=== PATIENT | female | born 1955 | race Caucasian/White ===

== ENCOUNTER 2018-06-30 00:24 | Outpatient (CLI) | payer BC, SELFPAY ==
--- NOTE | 2018-06-30 16:03 | DI.MAMMO_ITS ---
SYMPTOM/DIAGNOSIS: SCREENING, Z12.31 MAMMOGRAMS: Mammograms were interpreted according to the usual protocol including computer analysis with CAD system, tomosynthesis and C view imaging. Comparison with prior examinations. Breast density C. No masses or microcalcifications are seen. There is nothing to suggest malignancy. IMPRESSION: Negative mammogram. Routine screening is recommended. Category I. MQSA ASSESSMENT OF FINDINGS: Negative. Category 1. Patient will receive a letter notifying them of these results. Bi-RADS category C. The breasts are heterogeneously dense, which may obscure small masses.
== END 2018-06-30 00:44 ==
PROVIDERS: PCP Family Medicine; Visit Provider Family Medicine
DX: Z12.31 Encounter for screening mammogram for malignant neoplasm of breast (principal)
CPT/HCPCS: 77063; 77067

== ENCOUNTER 2018-07-25 02:01 | Outpatient (CLI) | payer BC, SELFPAY ==
[2018-07-25 13:27] LABS: ALT 39 U/L (12-78); AST 32 U/L (15-37); Albumin 3.8 g/dL (3.4-5.0); Alkaline Phosphatase 50 U/L (46-116); Anion Gap 8.4 mmol/L (3-11); BUN 13 mg/dL (7-18); Bilirubin, Total 0.3 mg/dL (0.2-1.0); CO2 27.6 mmol/L (21.0-32.0); CREATININE 0.67 mg/dL (0.55-1.02); Calcium 9.1 mg/dL (8.5-10.1); Chloride 103 mmol/L (98-107); Cholesterol 230 mg/dL (50-200); Glucose 104 mg/dL (70-100); HDL Cholesterol 52 mg/dL (40-60); LDL CHOLESTEROL 147 mg/dL (<100); Potassium 4.9 mmol/L (3.5-5.1); Sodium 139 mmol/L (136-145); TSH (W/Ref FT4) 2.54 uIU/mL (0.358-3.74); Total Protein 7.1 g/dL (6.4-8.2); Triglyceride 173 mg/dL (30-150)
[2018-07-25 18:50] LABS: Vitamin B12 406 pg/mL (193-986)
== END 2018-07-25 02:21 ==
PROVIDERS: PCP Family Medicine; Visit Provider Family Medicine
DX: Z00.00 Encounter for general adult medical examination without abnormal findings (principal)
CPT/HCPCS: 36415; 80053; 80061; 83721; 82607; 84443

== ENCOUNTER 2018-09-11 07:45 | Day surgery (SDC) | payer BC, SELFPAY ==
--- NOTE | 2018-09-11 06:39 | W.COLOREPORT ---
Date of service: 09/11/18 Time of Service: 09:16 Colonoscopy Report Date of procedure: 09/11/18 Pre-op diagnosis general: Colon Cancer Screening Post-op diagnosis procedure note: other (Unable to complete secondary to colon being tortuous) Procedure: Colonoscopy Surgeon: Mohini Sewell Anesthesia proc note operative: MAC (Calvin Coker, ELLIE /ASA 2) Pathology: none sent Complications: None Disposition: same day Indications: Ms. Ibarra is a 63-year-old female who was seen in the office for a colonoscopy. Her last colonoscopy was in 2006 and was normal. Risks, benefits, complications were reviewed with her and she wished to proceed. No guarantees were given or implied. Prep: Miralax/Dulcolax Procedure Start Time: :16 Procedure End Time: : Findings: Extremly lax and tortuous colon. Attempted for 40 minutes to get the scope to advance to the cecum. Got as far as transverse colon. Position changes done and abdominal pressure applied without being able to advance the scope past this point. Prep was also suboptimal with a lot of liquid stool in her colon. Procedure Description: After informed consent was obtained the patient was taken to the procedure room and placed in a left decubitous position. Monitors were applied and a time out was done. The patients name, date of , procedure, allergies to medications and metal in their body was reviewed. The patient was then sedated. Once sedated and comfortable a rectal exam was done. External exam was normal. Internal exam revealed a normal sphincter tone and no palpable masses. The scope was then introduced and retro-flexed. No internal hemorrhoids were identified. The scope was then advanced to the mid-transverse colon with a lot of difficulty due to the colon being tortuous and quit lax. 40 minutes were spend trying to get the scope to advance past the mid-transverse colon without success. Patient had abdominal pressure applied and her position was switched to supine. None of these things helped to advance the scope. No polyps were noted from the transverse colon down. The scope was removed and the patient was woken up and taken back to Same day surgery in stable condition. The patient tolerated the procedure well and there were no immediate complications. Follow up: We can try again here or have patient follow up at [facility] or [place] for a colonoscopy to see if they have better luck. I will discuss this with patient and see which is her preference.
--- NOTE | 2018-09-11 06:41 | PDOC.DSDIS_ITS ---
Discharge Plan Disposition Patient Disposition: HOME Condition: Good Discharge Details Reason For Visit: SCREENING Attending Provider: Mohini Sewell Primary Care Provider: Terra Pike Home Meds and New Rx's Prescriptions: Continued ibuprofen 200 MG tablet 600 mg PO PRN RF: 0 Discontinued bisacodyl [Dulcolax (bisacodyl)] 5 mg tablet,delayed release (DR/EC) 5 mg PO ONCE Qty: 4 RF: 0 polyethylene glycol 3350 17 gram/dose powder 255 g PO ONCE Qty: 255 RF: 0 Discharge Instructions Instructions: Colonoscopy (DC) Additional Instructions: Findings: Tortuous and relaxed colon making it impossible to move the scope to the cecum. Follow up: Discuss second attempt here vs referral to [facility] or [facility] Please call if you develop: fevers >101.5 Nausea or Vomiting Abdominal pain that is not transient DAY SURGERY UNIT POST COLONOSCOPY INSTRUCTIONS 1. Because there will be medication in your system for the next 24 hours, you may feel a little sleepy. Your coordination will be affected. Therefore: a. Do not drive or operate dangerous equipment for 24 hours. b. Do not drink alcohol beverages for 24 hours (not even beer). c. Plan to go home and rest for the day. 2. Generally there are no restrictions on your activity after a day or so has gone by, but you may feel a bit fatigued for a few days. 3 After you arrive home you may have a light meal and return to a normal diet as you can tolerate it without feeling sick to your stomach. 4. After surgery, you may feel pain or discomfort. This should be only transient, but if it persists please contact your doctor. 5. If there are any questions regarding the findings of your procedure, please feel free to contact your doctor. 6. If you are unable to contact your doctor with a problem, contact the hospital at [phone]. 7. Continue all your regular medications unless directed otherwise. I understand the above instructions and have no questions. Signature of Patient or Responsible Adult Escort Date/Time Name of Responsible Adult Escort Signature of Nurse Date/Time Activity:: Activity as Tolerated Diet:: As Tolerated Discharge Orders Discharge Orders: Discharge Order (Routine); Ordered 09/11/18 Ordered By: Mohini Sewell DS: Diagnosis Discharge Diagnosis (1) Tortuous colon: Status: Acute (2) S/P colonoscopy: Status: Acute
[2018-09-11 07:59] VITALS: BP 113/76; PULSE 73; RESP 16; TEMP 36.7; O2SAT 96
[2018-09-11] MEDS: Lactated Ringers 1,000 ML 80 ML IV (08:14)
[2018-09-11 11:19] VITALS: BP 112/51; BP 112/75; PULSE 71; PULSE 72; RESP 16; TEMP 37; O2SAT 94; O2SAT 96
== END 2018-09-11 11:35 | disposition home or self-care (01) ==
LOC: SUR 07:45
PROVIDERS: PCP Family Medicine; Visit Provider Surgery
PROC: 0DJD8ZZ Inspection of Lower Intestinal Tract, Via Natural or Artificial Opening Endoscopic (ICD-10-PCS; CPT 45378; principal; 2018-09-11 09:15)
DX: Z12.11 Encounter for screening for malignant neoplasm of colon (principal); K63.89 Other specified diseases of intestine
CPT/HCPCS: 45378

== ENCOUNTER 2020-06-27 08:19 | Outpatient (CLI) | payer BC, SELFPAY ==
[2020-07-01 18:08] LABS: Patient Race White; SARS-CoV-2 RNA Undetected (Undetected); SARS-CoV-2 Specimen Source Nasal
== END 2020-06-27 08:39 ==
PROVIDERS: PCP Family Medicine; Visit Provider Family Medicine
DX: J02.9 Acute pharyngitis, unspecified (principal)
CPT/HCPCS: U0003

== ENCOUNTER 2020-08-05 16:44 | Outpatient (REF) | payer BC, SELFPAY ==
--- NOTE | 2020-08-05 13:30 | PAPFT_PTH ---
PATIENT: Ginny Ibarra LOC: [facility] U#:[id number] AGE/SX: 64/F ROOM: RE08/05/[address]: Terra Pike MD, DC : 1955 BED: DIS: 08/05/2020 SPEC #: [id number] RECD: 08/06/20 12:41 STATUS: BART REQ #: [id number] CODY: 08/05/20 13:[address]: Terra Pike DEPT: [facility] Cytology RECD BY: Yuly Flores Tissues: 1 - CX/ENDOCX FOR PAP SMEARS Procedures: PAP THIN PREP/UVM Screening HPV DNA PROBE Comments: [id number]
== END 2020-08-05 17:04 ==
LOC: LBN 16:44
PROVIDERS: PCP Family Medicine; Visit Provider Family Medicine
DX: Z12.4 Encounter for screening for malignant neoplasm of cervix (principal); Z11.51 Encounter for screening for human papillomavirus (HPV)
CPT/HCPCS: 88142; 87624

== ENCOUNTER 2020-08-08 02:35 | Outpatient (CLI) | payer BC, SELFPAY ==
[2020-08-08 14:54] LABS: ESR 38 mm/hr (0-30)
== END 2020-08-08 02:55 ==
PROVIDERS: PCP Family Medicine; Visit Provider Family Medicine
DX: M79.18 Myalgia, other site (principal)
CPT/HCPCS: 36415; 85652

== ENCOUNTER 2021-01-05 01:15 | Outpatient (CLI) | payer BC, SELFPAY ==
--- NOTE | 2021-01-05 06:45 | DI.MAMMO_ITS ---
Exam(s) MAMMO SCREENING EXAM: MAMMO SCREENING CLINICAL HISTORY: screening TECHNIQUE: Bilateral full field digital CC and MLO mammographic images were obtained with 3D tomosyn thesis and utilizing computer aided detection (CAD). COMPARISON: Available for comparison. FINDINGS: Masses/Architectural Distortion: None seen. Microcalcifications: No suspicious pleomorphic-type are seen. Skin Thickening/Nipple Retraction: None. IMPRESSION: 1. No significant interval change with no specific features of malignancy noted. 2. Unless there is more urgent need, screening mammography is recommended, as per [employer] guidelines. BI-RADS Category 1 - Negative Breast Density - Category C - Heterogeneously dense Breast density category C or D implies that the patient has dense breast tissue. Dense breast tissue is very common and is not abnormal but dense breast tissue can make it harder to find cancer on a ma mmogram. Also, dense breast tissue may increase their breast cancer risk. This information about the result of the mammogram report was provided to the patient to raise their awareness. Use this report when you speak with the patient about their risks for breast cancer, which includes their family hist ory. At that time, you may recommend for more screening tests (Ultrasound or MRI) as they might be us eful based on their risk. A negative radiographic report should not delay biopsy if a dominant or clinically suspicious mass is present. Up to ten percent of cancers are not identified on mammography. A negative report may reinforce clinical impression. Adenosis and dense breasts may obscure an underlying neoplasm. False positive reports average 6 to 10%. Patient will receive a letter notifying them of these results.
== END 2021-01-05 01:35 ==
PROVIDERS: PCP Family Medicine; Visit Provider Family Medicine
DX: Z12.31 Encounter for screening mammogram for malignant neoplasm of breast (principal)
CPT/HCPCS: 77063; 77067

== ENCOUNTER 2022-11-19 18:20 | Outpatient (CLI) | payer MEDICARE, SELFPAY ==
--- NOTE | 2022-11-19 18:15 | RT.EKG_ITS ---
APPROVED REPORT Exam: Resting ECG Reason for Exam: Absess Patient Location: O HR:62 bpm ECG Measurements Heart Rate 62 AXIS MS 205 P 30 QRSd 109 QRS 54 QT 411 T 46 QTc 418 Conclusion Sinus rhythm...normal P axis, V-rate 50- 99 Multiple ventricular premature complexes...V complexes w/ short R-R intervls Otherwise normal ECG
== END 2022-11-19 18:21 | disposition home or self-care (01) ==
LOC: DI.CM 18:20
PROVIDERS: PCP Family Medicine; Visit Provider Nurse Practitioner Family
DX: I49.9 Cardiac arrhythmia, unspecified (principal); I49.3 Ventricular premature depolarization
CPT/HCPCS: 93010

== ENCOUNTER 2022-11-19 21:18 | Outpatient (REF) | payer MEDICARE, SELFPAY ==
[2022-11-19 22:01] LABS: Anion Gap 8.8 mmol/L (3-11); BUN 17 mg/dL (7-18); CO2 29.2 mmol/L (21.0-32.0); CREATININE 0.7 mg/dL (0.55-1.02); Chloride 103 mmol/L (98-107); Estimated GFR 95.32 (mL/min/1.73m2); Glucose 107 mg/dL (74-106); Potassium 4.5 mmol/L (3.5-5.1); Sodium 141 mmol/L (136-145)
== END 2022-11-19 21:19 | disposition home or self-care (01) ==
LOC: LBN 21:18
PROVIDERS: PCP Family Medicine; Visit Provider Nurse Practitioner Family
DX: N90.7 Vulvar cyst (principal); I49.3 Ventricular premature depolarization
CPT/HCPCS: 80048; 87070; 87205

== ENCOUNTER 2023-02-22 13:14 | Outpatient (REF) | payer MEDICARE, SELFPAY ==
[2023-02-22 21:07] LABS: Abs Immature Grans 0.01 10^3/uL (0.0-0.06); Absolute Basophil Count 0.03 10^3/uL (0.0-0.2); Absolute Eosinophil Count 0.23 10^3/uL (0.0-0.7); Absolute Lymphocyte Count 2.73 10^3/uL (1.2-3.4); Absolute Monocyte Count 0.43 10^3/uL (0.1-0.8); Absolute Neutrophil Count 1.83 10^3/uL (1.2-6.7); Basophils % 0.6; Eosinophils % 4.4; HCT 41.3 % (36.0-46.0); Immature Grans % 0.2; Lymphocytes % 51.9; MCH 30.8 pg (27.0-33.0); MCHC 33.9 % (32.0-36.0); MCV 91 fL (80-95); MPV 12.3 fL (8.0-11.0); Monocytes % 8.2; Neutrophils % 34.7; Platelet Count 207 10^3/uL (130-400); RBC 4.54 10^6/uL (3.93-5.22); RDW 12.8 % (11.7-14.6); RDW-SD 42.6 fL; WBC 5.26 10^3/uL (4.4-10.8)
[2023-02-22 21:13] LABS: Anion Gap 10.8 mmol/L (3-11); BUN 12 mg/dL (7-18); CO2 25.2 mmol/L (21.0-32.0); CREATININE 0.6 mg/dL (0.55-1.02); Calcium 9.7 mg/dL (8.5-10.1); Chloride 105 mmol/L (98-107); Estimated GFR 98.93 (mL/min/1.73m2); Glucose 107 mg/dL (74-106); Potassium 4.3 mmol/L (3.5-5.1); Sodium 141 mmol/L (136-145)
== END 2023-02-22 13:15 | disposition home or self-care (01) ==
LOC: LBN 13:14
PROVIDERS: PCP Family Medicine; Visit Provider Nurse Practitioner Family
DX: R05.9 Cough, unspecified (principal)
CPT/HCPCS: 80048; 85025

== ENCOUNTER 2023-02-22 14:01 | Outpatient (CLI) | payer MEDICARE, SELFPAY ==
--- NOTE | 2023-02-22 13:15 | DI.RAD_ITS ---
Exam(s) XR CHEST 2V PA LATERAL EXAM: XR CHEST 2V PA LATERAL CLINICAL HISTORY: evaluate pathology R05.9 COUGH TECHNIQUE: 2D digital imaging was performed of the chest. Two images were obtained. PA and lateral views were obtained. COMPARISON: No exams were available for comparison FINDINGS: MEDIASTINUM: Normal. HEART: Normal. PULMONARY VASCULATURE: Normal. LUNGS: Clear. PLEURAL SPACE: No pleural effusion or pneumothorax. BONE:Within normal limits for the patient's age. OTHER FINDINGS:Normal. IMPRESSION: No acute pulmonary findings. DATA REPOSITORY: RADIATION DOSE DELIVERED:
== END 2023-02-22 14:21 ==
LOC: DI 14:05
PROVIDERS: PCP Family Medicine; Visit Provider Nurse Practitioner Family
DX: R05.9 Cough, unspecified (principal)
CPT/HCPCS: 71046

== ENCOUNTER → 2023-11-18 01:17 | Outpatient (CLI) | payer MEDICARE, SELFPAY ==
--- NOTE | 2023-11-18 07:30 | DI.DEXA_ITS ---
Exam(s) XR DEXA BONE DENSITY W/WO CHANTELL EXAM: XR DEXA BONE DENSITY W/WO CHANTELL CLINICAL HISTORY: SCREENING FOR OSTEOPOROSIS IN POSTMENOPAUSAL WOMAN,Z78.0 TECHNIQUE: [employer] TV Horizon C densitometer analysis of left hip, lumbar spine and left forearm. Lat eral survey image of the thoracic and lumbar spine. COMPARISON: Two thousand seven FINDINGS: Lateral view of the thoracic and lumbar spine shows no evidence of compression fractures. Bone mineral density measurements of the lumbar spine correspond to a total T-score of -0.3, in the normal range. This represents a 9.9 percent decrease compared with 2007. Bone mineral density measurements of the left hip correspond to a total T-score of -1.1. This repre sents an 18.1 percent decrease compared with 2007.. The femoral neck T-score is -1.5, in the osteop enic range.. Theleft forearm bone mineral density measurements correspond to a T-score of the distal 3rd of -0.6, in the normal range. The forearm was not analyzed in 2006.. IMPRESSION: Osteopenia of the lumbar spine and hip. Normal bone mineral density of the forearm.
--- NOTE | 2023-11-18 12:30 | DI.MAMMO_ITS ---
Exam(s) MAMMO SCREENING EXAM: MAMMO SCREENING CLINICAL HISTORY: screening,Z12.39 TECHNIQUE: Mammograms were interpreted according to the usual protocol including computer analysis w [employer] CAD system, tomosynthesis and C-view imaging. COMPARISON: 2013 through 2020 FINDINGS: The breasts are composed of scattered fibroglandular densities, Breast Density category B. No suspicious masses or suspicious microcalcifications are seen. No skin thickening or abnormal axillary lymph nodes are seen. There has been no significant change from prior exams. IMPRESSION: BI-RADS Category 1, Negative mammogram Yearly screening mammography is recommended. Breast Density - Category B, scattered fibroglandular densities. A negative radiographic report should not delay biopsy if a dominant or clinically suspicious mass is present. Up to ten percent of cancers are not identified on mammography. A negative report may reinforce clinical impression. Adenosis and dense breasts may obscure an underlying neoplasm. False positive reports average 6 to 10%. Patient will receive a letter notifying them of these results.
== END ==
PROVIDERS: PCP Family Medicine; Visit Provider Family Medicine
DX: Z78.0 Asymptomatic menopausal state (principal); Z12.31 Encounter for screening mammogram for malignant neoplasm of breast; Z13.820 Encounter for screening for osteoporosis; M81.0 Age-related osteoporosis without current pathological fracture
CPT/HCPCS: 77063; 77067; 77080

== ENCOUNTER 2023-11-30 21:37 | Outpatient (REF) | payer MEDICARE, SELFPAY | END 2023-11-30 21:38 | disposition home or self-care (01) | LOC: NCHCN 21:37 | PROVIDERS: PCP Family Medicine; Visit Provider Physician Assistant | DX: J02.9 Acute pharyngitis, unspecified (principal) | CPT/HCPCS: 87070 ==

== ENCOUNTER 2024-02-07 15:02 | Emergency (ER) | payer MEDICARE, SELFPAY ==
[2024-02-07 15:10] VITALS: BP 181/85; PULSE 70; RESP 14; TEMP 36.9; O2SAT 96
--- NOTE | 2024-02-07 16:00 | DI.RAD_ITS ---
Exam(s) XR SHOULDER LT COMPLETE 2+V XR CLAVICLE LT EXAM: XR SHOULDER LT COMPLETE 2+V and XR clavicle LT CLINICAL HISTORY: trauma. TECHNIQUE: 2D digital imaging was performed of the left shoulder. Five images were obtained. Grash ey, AP, Y, AP and axial views were obtained. COMPARISON: CR LEFT SHOULDER COMPLETE from 05/25/2010 FINDINGS: BONES: There is an acute comminuted fracture in the midshaft of the left clavicle. There is overridi ng of the fracture fragments. No bony destructive lesion is seen. JOINTS: No dislocation present. The glenohumeral and acromioclavicular joints are intact. SOFT TISSUE: Normal. IMPRESSION: Comminuted overriding fracture of the left clavicle. DATA REPOSITORY: RADIATION DOSE DELIVERED:
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
[2024-02-07 18:02] VITALS: BP 141/76; PULSE 79; RESP 16; TEMP 37.3; O2SAT 99
== END 2024-02-07 18:36 | disposition home or self-care (01) ==
PROVIDERS: Emergency Provider Registered Nurse Emergency; PCP Family Medicine
DX: S42.022A Displaced fracture of shaft of left clavicle, initial encounter for closed fracture (principal); S80.12XA Contusion of left lower leg, initial encounter; V18.0XXA Pedal cycle driver injured in noncollision transport accident in nontraffic accident, initial encounter
CPT/HCPCS: 99284; 73000; 73030; 99283

== ENCOUNTER 2024-02-14 15:36 | Outpatient (CLI) | payer MEDICARE, SELFPAY ==
--- NOTE | 2024-02-14 09:30 | DI.RAD_ITS ---
Exam(s) XR CLAVICLE LT EXAM: XR CLAVICLE LT CLINICAL HISTORY: F/U FRACTURE TECHNIQUE: 2D digital imaging was performed of the left clavicle. Two images were obtained. AP and axial views were obtained. COMPARISON: CR XR CLAVICLE LT from 02/07/2024 FINDINGS: BONES: There has been no change in alignment of the comminuted overriding fracture of the midshaft of the left clavicle. No bony destructive lesion is seen. JOINTS: No dislocation present. SOFT TISSUE: Normal. IMPRESSION: Stable left clavicular fracture. DATA REPOSITORY: RADIATION DOSE DELIVERED:
== END 2024-02-14 15:37 | disposition home or self-care (01) ==
LOC: DIORS 15:36
PROVIDERS: PCP Family Medicine; Referring Provider Family Medicine; Visit Provider Student in an Organized Health Care Education/Training Program
DX: S42.002A Fracture of unspecified part of left clavicle, initial encounter for closed fracture (principal); V19.9XXA Pedal cyclist (driver) (passenger) injured in unspecified traffic accident, initial encounter
CPT/HCPCS: 99213; 73000

== ENCOUNTER 2024-02-28 14:14 | Outpatient (CLI) | payer MEDICARE, SELFPAY ==
--- NOTE | 2024-02-28 08:45 | DI.RAD_ITS ---
Exam(s) XR CLAVICLE LT EXAM: XR CLAVICLE LT INDICATION: F/U FRACTURE. COMPARISON: CR XR CLAVICLE LT from 02/14/2024 TECHNIQUE: 2D digital imaging was performed. Two views. FINDINGS: No change in alignment mid clavicle fracture. No new findings. DATA REPOSITORY: RADIATION DOSE DELIVERED:
== END 2024-02-28 14:15 | disposition home or self-care (01) ==
LOC: DIORS 14:14
PROVIDERS: PCP Family Medicine; Visit Provider Student in an Organized Health Care Education/Training Program
DX: S42.002A Fracture of unspecified part of left clavicle, initial encounter for closed fracture (principal); S42.002D Fracture of unspecified part of left clavicle, subsequent encounter for fracture with routine healing; V19.9XXD Pedal cyclist (driver) (passenger) injured in unspecified traffic accident, subsequent encounter
CPT/HCPCS: 99213; 73000

== ENCOUNTER 2024-04-03 14:18 | Outpatient (CLI) | payer MEDICARE, SELFPAY ==
--- NOTE | 2024-04-03 13:30 | DI.RAD_ITS ---
Exam(s) XR CLAVICLE LT EXAM: XR CLAVICLE LT INDICATION: F/U FRACTURE. COMPARISON: CR XR CLAVICLE LT from 02/28/2024 TECHNIQUE: 2D digital imaging was performed. Two views. FINDINGS: Stable alignment of mid clavicle fracture. No visible bony bridging. No new abnormalities. DATA REPOSITORY: RADIATION DOSE DELIVERED:
== END 2024-04-03 14:19 | disposition home or self-care (01) ==
LOC: DIORS 14:18
PROVIDERS: PCP Family Medicine; Visit Provider Student in an Organized Health Care Education/Training Program
DX: S42.002D Fracture of unspecified part of left clavicle, subsequent encounter for fracture with routine healing; V19.9XXD Pedal cyclist (driver) (passenger) injured in unspecified traffic accident, subsequent encounter; M25.612 Stiffness of left shoulder, not elsewhere classified
CPT/HCPCS: 99213; 73000

== ENCOUNTER 2024-05-01 15:53 | Outpatient (CLI) | payer MEDICARE, SELFPAY ==
--- NOTE | 2024-05-01 10:45 | DI.RAD_ITS ---
Exam(s) XR CLAVICLE LT EXAM: XR CLAVICLE LT CLINICAL HISTORY: F/U FRACTURE. TECHNIQUE: 2D digital imaging was performed. COMPARISON: CR XR CLAVICLE LT from 04/03/2024 FINDINGS: Two views The overriding displaced midshaft fracture of the clavicle appears radiographically unchanged from . No obvious callus formation. No further displacement. AC joint unchanged. IMPRESSION: No significant radiographic change compared to 04/03/2024. DATA REPOSITORY: RADIATION DOSE DELIVERED:
== END 2024-05-01 15:54 | disposition home or self-care (01) ==
LOC: DIORS 15:53
PROVIDERS: PCP Family Medicine; Referring Provider Family Medicine; Visit Provider Student in an Organized Health Care Education/Training Program
DX: S42.002D Fracture of unspecified part of left clavicle, subsequent encounter for fracture with routine healing (principal); X58.XXXD Exposure to other specified factors, subsequent encounter; M75.102 Unspecified rotator cuff tear or rupture of left shoulder, not specified as traumatic
CPT/HCPCS: 99213; 73000

== ENCOUNTER 2024-05-25 00:31 | Outpatient (CLI) | payer MEDICARE, SELFPAY ==
--- NOTE | 2024-05-25 06:15 | DI.MRI_ITS ---
Exam(s) MR UPPER JOINT LT WO EXAM: MR UPPER JOINT LT WO CLINICAL HISTORY: PAIN,lt rotator cuff tear,fx lt clavicle,m75.102,s42.002a. TECHNIQUE: Multiplanar multisequence MRI was performed. COMPARISON: Clavicle 01 May 2024 Shoulder 07 February 2024 FINDINGS: BONES: Distal clavicle fracture shows mild high signal indicating significant interval healing. JOINTS:The acromioclavicular joint is is not widened. Small amount of fluid. No significant spurrin g. The glenohumeral joint is normal. TENDONS: Supraspinatus: Small area of high signal distally near the attachment which could indicate a partial tear. Infraspinatus: Unremarkable. Subscapularis: Unremarkable. Teres Minor: Unremarkable. Biceps and [place]: Unremarkable. MUSCLES: Mild edema in the anterior supraspinatus muscle. GLENOID LABRUM: Unremarkable on this noncontrast examination. SOFT TISSUES: Some high signal anterior to clavicle fracture OTHER: Subacromial and subdeltoid bursae shows minimal fluid. Small amount of fluid in the subdelt oid bursa.. IMPRESSION: Question of partial tear distal supraspinatus tendon. Some supraspinatus muscle edema also present. DATA REPOSITORY:
== END 2024-05-25 00:51 ==
LOC: DI 00:31
PROVIDERS: PCP Family Medicine; Visit Provider Student in an Organized Health Care Education/Training Program
DX: M75.102 Unspecified rotator cuff tear or rupture of left shoulder, not specified as traumatic
CPT/HCPCS: 73221

== ENCOUNTER 2024-05-30 16:08 | Outpatient (CLI) | payer MEDICARE, SELFPAY ==
--- NOTE | 2024-05-30 13:15 | DI.RAD_ITS ---
Exam(s) XR CLAVICLE LT EXAM: XR CLAVICLE LT CLINICAL HISTORY: F/U FRACTURE. TECHNIQUE: 2D digital imaging was performed. COMPARISON: CR XR CLAVICLE LT from 02/07/2024 CR XR CLAVICLE LT from 05/01/2024 FINDINGS: Two views The appearance of the overriding midshaft fracture of the left clavicle remains unchanged from images dating back to 02/07/2024. No obvious callus formation. No further displacement. AC joint appears intact as does the glenohumeral joint. IMPRESSION: Unchanged appearance of the displaced midshaft fracture of the left clavicle. DATA REPOSITORY: RADIATION DOSE DELIVERED:
== END 2024-05-30 16:09 | disposition home or self-care (01) ==
LOC: DIORS 16:08
PROVIDERS: PCP Family Medicine; Referring Provider Family Medicine; Visit Provider Student in an Organized Health Care Education/Training Program
DX: S42.002A Fracture of unspecified part of left clavicle, initial encounter for closed fracture (principal); X58.XXXA Exposure to other specified factors, initial encounter; M75.02 Adhesive capsulitis of left shoulder
CPT/HCPCS: 20610; J1010; 73000

== ENCOUNTER 2024-07-25 15:18 | Outpatient (CLI) | payer MEDICARE, SELFPAY ==
--- NOTE | 2024-07-25 14:45 | DI.RAD_ITS ---
Exam(s) XR CLAVICLE LT EXAM: XR CLAVICLE LT INDICATION: F/U FRACTURE. COMPARISON: CR XR CLAVICLE LT from 05/30/2024 TECHNIQUE: 2D digital imaging was performed. Two views. FINDINGS: Stable alignment of mid clavicle fracture which shows slight increase in healing from prior exam. No new abnormalities. DATA REPOSITORY: RADIATION DOSE DELIVERED:
== END 2024-07-25 15:19 | disposition home or self-care (01) ==
LOC: DIORS 15:19
PROVIDERS: PCP Family Medicine; Referring Provider Family Medicine; Visit Provider Student in an Organized Health Care Education/Training Program
DX: S42.002D Fracture of unspecified part of left clavicle, subsequent encounter for fracture with routine healing (principal); X58.XXXD Exposure to other specified factors, subsequent encounter; M75.02 Adhesive capsulitis of left shoulder
CPT/HCPCS: 99213; 73000

== ENCOUNTER 2024-10-10 15:59 | Outpatient (REF) | payer MEDICARE, SELFPAY ==
[2024-10-11 09:47] LABS: COVID-19 PCR Negative (Negative); Influenza A PCR Negative (Negative); Influenza B PCR Negative (Negative); RSV PCR Negative (Negative)
[2024-10-11 09:50] LABS: Source Nasopharynx
== END 2024-10-10 16:00 | disposition home or self-care (01) ==
LOC: LBN 15:59
PROVIDERS: PCP Family Medicine; Visit Provider Nurse Practitioner Family
DX: J05.0 Acute obstructive laryngitis [croup] (principal); R05.9 Cough, unspecified
CPT/HCPCS: 87637

== ENCOUNTER 2024-10-10 16:10 | Outpatient (CLI) | payer MEDICARE, SELFPAY ==
--- NOTE | 2024-10-10 15:15 | DI.RAD_ITS ---
Exam(s) XR CHEST 2V PA LATERAL EXAM: XR CHEST 2V PA LATERAL CLINICAL HISTORY: Cough, R05.9, eval pna TECHNIQUE: 2D digital imaging was performed. Two views. COMPARISON: CR XR CHEST 2V PA LATERAL from 02/22/2023 FINDINGS: HEART: Normal size. Aorta: mildly tortuous PULMONARY VASCULATURE: Normal. MEDIASTINUM: Unremarkable. LUNGS: Clear. PLEURAL SPACE: No pleural effusion or pneumothorax. BONE:Unremarkable for age. SOFT TISSUES: Unremarkable. IMPRESSION: No acute abnormality. DATA REPOSITORY: RADIATION DOSE DELIVERED:
== END 2024-10-10 16:30 ==
LOC: DI 16:11
PROVIDERS: PCP Family Medicine; Visit Provider Nurse Practitioner Family
DX: R05.9 Cough, unspecified (principal)
CPT/HCPCS: 71046

== ENCOUNTER 2024-11-13 15:57 | Outpatient (CLI) | payer MEDICARE, SELFPAY ==
--- NOTE | 2024-11-13 14:15 | DI.RAD_ITS ---
Exam(s) XR CLAVICLE LT EXAM: XR CLAVICLE LT CLINICAL HISTORY: F/U FRACTURE TECHNIQUE: 2D digital imaging was performed of the left clavicle. Two images were obtained. AP and axial views were obtained. COMPARISON: No exams were available for comparison FINDINGS: BONES: There has been no change in alignment of the overriding fracture of the midshaft of the left c lavicle. No visible bridging callus formation is seen at this time. There is no new fracture. No b chintan destructive lesion is seen. JOINTS: No dislocation present. SOFT TISSUE: Normal. IMPRESSION: Stable alignment of the overriding left clavicular fracture. DATA REPOSITORY: RADIATION DOSE DELIVERED:
== END 2024-11-13 15:58 | disposition home or self-care (01) ==
LOC: DIORS 15:58
PROVIDERS: PCP Family Medicine; Referring Provider Family Medicine; Visit Provider Student in an Organized Health Care Education/Training Program
DX: S42.002D Fracture of unspecified part of left clavicle, subsequent encounter for fracture with routine healing (principal); X58.XXXD Exposure to other specified factors, subsequent encounter; M75.02 Adhesive capsulitis of left shoulder
CPT/HCPCS: 99213; 73000

== ENCOUNTER 2025-01-15 03:50 | Outpatient (CLI) | payer MEDICARE, SELFPAY ==
[2025-01-15 12:27] LABS: Abs Immature Grans 0.01 10^3/uL (0.0-0.06); Absolute Basophil Count 0.05 10^3/uL (0.0-0.2); Absolute Eosinophil Count 0.13 10^3/uL (0.0-0.7); Absolute Lymphocyte Count 3.23 10^3/uL (1.2-3.4); Absolute Monocyte Count 0.58 10^3/uL (0.1-0.8); Absolute Neutrophil Count 2.18 10^3/uL (1.2-6.7); Basophils % 0.8 %; Eosinophils % 2.1 %; HCT 42.4 % (36.0-46.0); HGB 13.9 g/dL (11.2-15.7); Immature Grans % 0.2 %; Lymphocytes % 52.3 %; MCH 30.2 pg (27.0-33.0); MCHC 32.8 % (32.0-36.0); MCV 92 fL (80-95); MPV 11.7 fL (8.0-11.0); Monocytes % 9.4 %; Neutrophils % 35.2 %; Platelet Count 239 10^3/uL (130-400); RBC 4.61 10^6/uL (3.93-5.22); RDW 12.9 % (11.7-14.6); RDW-SD 43.1 fL; WBC 6.18 10^3/uL (4.4-10.8)
[2025-01-15 12:49] LABS: ALT 36 U/L (14-59); AST 34 U/L (15-37); Albumin 3.9 g/dL (3.4-5.0); Alkaline Phosphatase 61 U/L (46-116); Anion Gap 7.7 mmol/L (3-11); BUN 14 mg/dL (7-18); Bilirubin, Total 0.4 mg/dL (0.2-1.0); CO2 29.3 mmol/L (21.0-32.0); CREATININE 0.7 mg/dL (0.55-1.02); Chloride 104 mmol/L (98-107); Estimated GFR 94.15 (mL/min/1.73m2); Glucose 113 mg/dL (74-106); Potassium 3.8 mmol/L (3.5-5.1); Sodium 141 mmol/L (136-145); Total Protein 7.7 g/dL (6.4-8.2)
== END 2025-01-15 03:51 | disposition home or self-care (01) ==
LOC: LOS 03:50
PROVIDERS: PCP Family Medicine; Visit Provider Family Medicine
DX: I10 Essential (primary) hypertension (principal); R53.83 Other fatigue
CPT/HCPCS: 36415; 80053; 85025

== ENCOUNTER 2025-02-19 13:17 | Outpatient (CLI) | payer MEDICARE, SELFPAY ==
--- NOTE | 2025-02-19 13:00 | DI.RAD_ITS ---
Exam(s) XR CLAVICLE LT EXAM: XR CLAVICLE LT CLINICAL HISTORY: F/U FRACTURE TECHNIQUE: 2D digital imaging was performed of the left clavicle. Two images were obtained. AP and axial views were obtained. COMPARISON: CR XR CLAVICLE LT from 02/28/2024 CR XR CLAVICLE LT from 07/25/2024 CR XR CHEST 2V PA LATERAL from 10/10/2024 CR XR CLAVICLE LT from 11/13/2024 FINDINGS: BONES: The overriding fracture of the midshaft of the left clavicle is again seen. No bridging callus formation is seen. No bony destructive lesion is seen. JOINTS: No dislocation present. SOFT TISSUE: Normal. IMPRESSION: Stable nonunited left clavicular fracture. DATA REPOSITORY: RADIATION DOSE DELIVERED:
== END 2025-02-19 13:18 | disposition home or self-care (01) ==
LOC: DIORS 13:17
PROVIDERS: PCP Family Medicine; Referring Provider Family Medicine; Visit Provider Physician Assistant
DX: S42.002D Fracture of unspecified part of left clavicle, subsequent encounter for fracture with routine healing (principal); M75.02 Adhesive capsulitis of left shoulder; X58.XXXD Exposure to other specified factors, subsequent encounter
CPT/HCPCS: 99213; 73000

== ENCOUNTER 2025-07-01 03:38 | Outpatient (CLI) | payer MEDICARE, SELFPAY ==
--- NOTE | 2025-07-01 07:00 | DI.RAD_ITS ---
Exam(s) XR CERVICAL SPINE COMP 4-5V EXAM: XR CERVICAL SPINE COMP 4-5V CLINICAL HISTORY: neck pain,M54.2. TECHNIQUE: 2D digital imaging was performed. Five images were obtained. AP, odontoid, lateral and bilateral oblique images were obtained. COMPARISON: No exams were available for comparison FINDINGS: The odontoid is intact. The lateral masses are well aligned. There is normal alignment of the cervical spine. There is disc space narrowing at C4-5 and C5- C6. Osteophytes are also seen at the endplates of these levels. There is mild reversal of the normal cervical lordosis centered at C5. No acute fracture or subluxation is present. No significant neural foraminal stenosis is present. The cervical thoracic junction is well maintained. The prevertebral soft tissues are unremarkable. Lung apices are clear. IMPRESSION: Mild degenerative changes in the cervical spine. DATA REPOSITORY: RADIATION DOSE DELIVERED:
== END 2025-07-01 03:58 ==
LOC: DI 03:38
PROVIDERS: PCP Family Medicine; Visit Provider Family Medicine
DX: M50.321 Other cervical disc degeneration at C4-C5 level (principal); M50.322 Other cervical disc degeneration at C5-C6 level
CPT/HCPCS: 72050